=== PATIENT | female | born 1985 ===

== ENCOUNTER 2019-07-29 08:51 | Emergency (ER) | payer OTHER ==
[~2019-07-29] VITALS: Ht 157.5 cm; Wt 56.7 kg
[~2019-07-29 08:51] MED LIST: INTEGRA PLUS C1 EACH PO; OSEL75CA PO; RELAGESIC 5001 EACH PO
[2019-07-29] MEDS ORDERED: ZITHROMAX500 MG PO (13:05)
== END 2019-07-29 13:13 | disposition home or self-care (01) ==
LOC: ER 08:51
DX: B34.9 Viral infection, unspecified (principal); B96.0 Mycoplasma pneumoniae [M. pneumoniae] as the cause of diseases classified elsewhere

== ENCOUNTER 2020-11-12 11:15 | Emergency (ER) | payer OTHER ==
[~2020-11-12] VITALS: Ht 157.5 cm; Wt 54.4 kg
[~2020-11-12 11:15] MED LIST changes: +ZITHROMAX500 MG PO
[2020-11-12] MEDS ORDERED: NORFLEX100MG PO (14:54)
== END 2020-11-12 15:33 | disposition home or self-care (01) ==
LOC: ER 11:15
DX: M54.5 Low back pain (principal)

== ENCOUNTER 2022-11-15 08:37 | Day surgery (SDC) | payer OTHER ==
[~2022-11-15] VITALS: Ht 157.5 cm; Wt 55.8 kg
[~2022-11-15 08:37] MED LIST changes: +NORFLEX100MG PO
[2022-11-15] MEDS ORDERED: MORGIDOX100 MG PO (13:25)
[2022-11-15] MEDS ORDERED: TRAMADOL HCL50 MG PO (13:27)
== END 2022-11-15 18:20 | disposition home or self-care (01) ==
LOC: CIR.AMB 08:37
PROVIDERS: ATTEND Obstetrics & Gynecology
DX: D25.0 Submucous leiomyoma of uterus (principal); N84.0 Polyp of corpus uteri; D50.0 Iron deficiency anemia secondary to blood loss (chronic); N92.0 Excessive and frequent menstruation with regular cycle; Z20.822 Contact with and (suspected) exposure to COVID-19; I10 Essential (primary) hypertension